=== PATIENT | female | born 1955 | race Caucasian/White ===

== ENCOUNTER 2023-07-30 03:34 | Inpatient (IN) | payer OTHER ==
[2023-07-30] MEDS ORDERED: niCARdipine 25 MG/10 ML SDV ONE (04:08)
[2023-07-30 04:51] LABS: %Basophils 1.2 % (0.0-1.0); %Eosinophils 1.8 % (0.0-10.0); %Lymphocytes 16.8 % (21.0-51.0); %Monocytes 7.7 % (0.0-10.0); Hemoglobin 12.5 g/dL (12.0-16.0); Mean Corpuscular HGB CONC 31.3 g/dL (32.0-36.0); Mean Corpuscular Hemoglobin 23.3 pg (27.0-31.0); Mean Corpuscular Volume 74.6 fL (78.0-98.0); Mean Platelet Volume 11.5 fL (7.4-10.4); Platelet Count 220 10x3/uL (130-400); RBC Distribution Width 17.6 % (11.5-14.5); Red Blood Cell (RBC) Count 5.36 mill/uL (4.20-5.40)
[2023-07-30 04:59] LABS: Globulin 3.1 g/dL (2.4-3.5)
[2023-07-30 05:03] LABS: ALT (SGPT) 8 U/L (8-55); AST (SGOT) 11 U/L (5-34); Albumin 3.4 g/dL (3.4-4.8); Alkaline Phosphatase 92 U/L (40-110); Anion Gap 15 mmol/L (10-20); BUN (Urea Nitrogen) 9 mg/dL (9.8-20.1); Bilirubin, Total 0.3 mg/dL (0.2-1.2); Calc. Creatinine Clearance 0 mL/min (70-130); Calcium 8.9 mg/dL (7.8-10.44); Carbon Dioxide 23 mmol/L (23-31); Chloride 105 mmol/L (98-107); Estimated GFR 96; Glucose 115 mg/dL (80-115); Potassium 3.4 mmol/L (3.5-5.1); Protein, Total 6.5 g/dL (5.8-8.1); Sodium 140 mmol/L (136-145)
[2023-07-30 05:09] LABS: PTT 28.1 sec (22.9-36.1); Prothrombin Time 13.5 sec (12.0-14.7)
[2023-07-30 05:10] LABS: Troponin I Less than 0.010 ng/mL (< 0.028)
[2023-07-30 05:38] LABS: Microcytosis SLIGHT = 6-15 cells HPF (0-5); Platelet Adequacy Comment Platelets Normal
[2023-07-30] MEDS ORDERED: Ondansetron PF 4 MG/2 ML Vial IVP PRN (06:08)
[2023-07-30] MEDS ORDERED: Communication Order-Pharmacy FS SCH (06:18)
[2023-07-30] MEDS ORDERED: Labetalol HCl 100 MG/20 ML VIAL SLOW IVP PRN (06:18)
[2023-07-30] MEDS: Ipratropium/Albuterol 3 ML NEB NEB SCH (08:54)
[2023-07-30] MEDS: Potassium Chloride 10 MEQ in Premix 1 BAG IVPB SCH (09:17)
[2023-07-30] MEDS ORDERED: Iopamidol 370 76% 100 ML VIAL ONE (09:48)
[2023-07-30] MEDS: hydrALAZINE 20 MG/ML VIAL SLOW IVP PRN (19:15)
[2023-07-30] MEDS: niCARdipine 25 MG in Sodium Chloride 0.9% 250 ML 250 ML IVPB PRN (20:01)
[2023-07-31 07:28] LABS: #Basophils 0.13 10x3/uL (0.0-0.2); %Basophils 0.9 % (0.0-1.0); %Eosinophils 0.4 % (0.0-10.0); %Lymphocytes 12.8 % (21.0-51.0); %Monocytes 6.9 % (0.0-10.0); %Neutrophils 78.6 % (42.0-75.0); Hematocrit 44.7 % (36.0-47.0); Hemoglobin 13.5 g/dL (12.0-16.0); Mean Corpuscular HGB CONC 30.2 g/dL (32.0-36.0); Mean Corpuscular Hemoglobin 22.5 pg (27.0-31.0); Mean Corpuscular Volume 74.4 fL (78.0-98.0); Platelet Count 194 10x3/uL (130-400); RBC Distribution Width 18.6 % (11.5-14.5); Red Blood Cell (RBC) Count 6.01 mill/uL (4.20-5.40)
[2023-07-31 07:29] LABS: Hemoglobin A1c 5.6 % (4.0-6.0)
[2023-07-31 07:56] LABS: Free T4 (Free Thyroxine) 1.01 ng/dL (0.70-1.48); Thyroid Stimulating Hormone 2.8592 uIU/mL (0.35-4.94)
[2023-07-31 08:11] LABS: Anion Gap 17 mmol/L (10-20); BUN (Urea Nitrogen) 5 mg/dL (9.8-20.1); Calc. Creatinine Clearance 131 mL/min (70-130); Calcium 9.3 mg/dL (7.8-10.44); Carbon Dioxide 22 mmol/L (23-31); Cardiac Risk 4.6 (Less than 4.5); Chloride 106 mmol/L (98-107); Cholesterol 194 mg/dl (< 200 Desired); Estimated GFR 101; Glucose 112 mg/dL (80-115); HDL Cholesterol 42 mg/dL (>60 Neg Risk); LDL Cholesterol, Calculated 127 mg/dL; Potassium 3.7 mmol/L (3.5-5.1); Sodium 141 mmol/L (136-145); Triglycerides 124 mg/dL (Less than 150)
[2023-07-31 08:56] LABS: Burr Cells SLIGHT = 2-5 cells HPF (0-1); Elliptocytes SLIGHT = 2-5 cells HPF (0-1); Platelet Adequacy Comment Platelets Normal; Polychromasia SLIGHT = 2-3 cells HPF (0-2)
[2023-07-31] MEDS: Amlodipine 10 MG TAB PO SCH (09:24)
[2023-07-31] MEDS: Aspirin 81 mg Enteric Coated Tablet PO SCH (11:00)
[2023-07-31] MEDS: Acetaminophen 500 MG TAB PO PRN (15:59)
[2023-07-31] MEDS: Losartan 25 MG TAB PO SCH (15:59)
[2023-07-31] MEDS: Enoxaparin 40 MG (0.4 mL) SYRINGE SC SCH (20:22)
[2023-07-31] MEDS: Atorvastatin Calcium 40 MG TAB PO SCH (20:22)
[2023-07-31] MEDS: Acetaminophen 500 MG TAB PO SCH (22:14)
[2023-07-31] MEDS: Melatonin 3 MG TAB PO SCH (22:14)
[2023-08-01 04:19] LABS: #Basophils 0.13 10x3/uL (0.0-0.2); %Basophils 1.3 % (0.0-1.0); %Eosinophils 1.7 % (0.0-10.0); %Lymphocytes 24.6 % (21.0-51.0); %Monocytes 9.9 % (0.0-10.0); %Neutrophils 62.3 % (42.0-75.0); Hematocrit 42.2 % (36.0-47.0); Hemoglobin 12.8 g/dL (12.0-16.0); Mean Corpuscular HGB CONC 30.3 g/dL (32.0-36.0); Mean Corpuscular Hemoglobin 22.1 pg (27.0-31.0); Mean Platelet Volume 11.6 fL (7.4-10.4); Platelet Count 233 10x3/uL (130-400); RBC Distribution Width 18.3 % (11.5-14.5); Red Blood Cell (RBC) Count 5.78 mill/uL (4.20-5.40)
[2023-08-01 05:36] LABS: Chloride 105 mmol/L (98-107); Potassium 3.3 mmol/L (3.5-5.1); Sodium 141 mmol/L (136-145)
[2023-08-01 05:37] LABS: Calcium 9.2 mg/dL (7.8-10.44); Glucose 95 mg/dL (80-115)
[2023-08-01 05:38] LABS: Anion Gap 16 mmol/L (10-20); Carbon Dioxide 23 mmol/L (23-31)
[2023-08-01 05:41] LABS: BUN (Urea Nitrogen) 6 mg/dL (9.8-20.1); Calc. Creatinine Clearance 122 mL/min (70-130); Estimated GFR 99
[2023-08-01] MEDS: Aspirin 81 mg Enteric Coated Tablet PO SCH (09:09)
[2023-08-01] MEDS: Losartan 25 MG TAB PO SCH (09:09)
[2023-08-01] MEDS: Methyl Salicylate/Menthol 85 GM TUBE TOP PRN (22:44)
[2023-08-02 05:19] LABS: #Basophils 0.12 10x3/uL (0.0-0.2); %Basophils 1.1 % (0.0-1.0); %Eosinophils 1.9 % (0.0-10.0); %Lymphocytes 24.4 % (21.0-51.0); %Monocytes 9.3 % (0.0-10.0); %Neutrophils 63.1 % (42.0-75.0); Hematocrit 41.6 % (36.0-47.0); Mean Corpuscular HGB CONC 31.3 g/dL (32.0-36.0); Mean Corpuscular Volume 73.5 fL (78.0-98.0); Mean Platelet Volume 11.6 fL (7.4-10.4); Platelet Count 242 10x3/uL (130-400); Red Blood Cell (RBC) Count 5.66 mill/uL (4.20-5.40)
[2023-08-02 05:55] LABS: Anion Gap 15 mmol/L (10-20); BUN (Urea Nitrogen) 9 mg/dL (9.8-20.1); Calc. Creatinine Clearance 121 mL/min (70-130); Calcium 9.2 mg/dL (7.8-10.44); Carbon Dioxide 24 mmol/L (23-31); Chloride 105 mmol/L (98-107); Estimated GFR 99; Glucose 93 mg/dL (80-115); Potassium 3.3 mmol/L (3.5-5.1); Sodium 141 mmol/L (136-145)
[2023-08-02] MEDS: Potassium Chloride 20 MEQ TAB PO SCH (09:39)
[2023-08-02] MEDS: Amlodipine 5 MG TAB PO SCH (09:43)
[2023-08-02] MEDS ORDERED: Acetaminophen 500 MG TAB PO SCH (15:00)
[2023-08-02] MEDS ORDERED: Methyl Salicylate/Menthol 85 GM TUBE TOP PRN (16:40)
[2023-08-03 05:19] LABS: #Basophils 0.13 10x3/uL (0.0-0.2); %Basophils 1.5 % (0.0-1.0); %Eosinophils 2.7 % (0.0-10.0); %Lymphocytes 29.2 % (21.0-51.0); %Monocytes 10.7 % (0.0-10.0); %Neutrophils 55.6 % (42.0-75.0); Hemoglobin 12.2 g/dL (12.0-16.0); Mean Corpuscular HGB CONC 30.5 g/dL (32.0-36.0); Mean Corpuscular Hemoglobin 23.2 pg (27.0-31.0); Mean Corpuscular Volume 76.2 fL (78.0-98.0); Mean Platelet Volume 11.7 fL (7.4-10.4); Platelet Count 229 10x3/uL (130-400); RBC Distribution Width 17.9 % (11.5-14.5); Red Blood Cell (RBC) Count 5.25 mill/uL (4.20-5.40)
[2023-08-03 05:41] LABS: Anion Gap 14 mmol/L (10-20); BUN (Urea Nitrogen) 10 mg/dL (9.8-20.1); Calc. Creatinine Clearance 123 mL/min (70-130); Calcium 9.1 mg/dL (7.8-10.44); Carbon Dioxide 24 mmol/L (23-31); Chloride 107 mmol/L (98-107); Estimated GFR 99; Glucose 97 mg/dL (80-115); Potassium 3.8 mmol/L (3.5-5.1); Sodium 141 mmol/L (136-145)
[2023-08-03] MEDS ORDERED: Amlodipine 10 MG TAB PO SCH ×2 (09:00)
[2023-08-04 05:26] LABS: #Basophils 0.12 10x3/uL (0.0-0.2); %Basophils 1.5 % (0.0-1.0); %Eosinophils 3.2 % (0.0-10.0); %Lymphocytes 30.5 % (21.0-51.0); %Monocytes 11.5 % (0.0-10.0); Hematocrit 40.6 % (36.0-47.0); Hemoglobin 12.4 g/dL (12.0-16.0); Mean Corpuscular HGB CONC 30.5 g/dL (32.0-36.0); Mean Corpuscular Hemoglobin 23.4 pg (27.0-31.0); Mean Corpuscular Volume 76.5 fL (78.0-98.0); Mean Platelet Volume 11.2 fL (7.4-10.4); Platelet Count 210 10x3/uL (130-400); RBC Distribution Width 17.6 % (11.5-14.5); Red Blood Cell (RBC) Count 5.31 mill/uL (4.20-5.40)
[2023-08-04 05:42] LABS: Anion Gap 14 mmol/L (10-20); BUN (Urea Nitrogen) 10 mg/dL (9.8-20.1); Calc. Creatinine Clearance 117 mL/min (70-130); Calcium 8.9 mg/dL (7.8-10.44); Carbon Dioxide 23 mmol/L (23-31); Chloride 107 mmol/L (98-107); Estimated GFR 98; Glucose 95 mg/dL (80-115); Potassium 3.6 mmol/L (3.5-5.1); Sodium 140 mmol/L (136-145)
[2023-08-05 07:45] VITALS: TEMP 98.2
[2023-08-05 16:06] VITALS: BP 119/70
== END 2023-08-05 17:17 | disposition home or self-care (01) | DRG 62 ==
LOC: ERS 03:34 → CCU 06:10 → 2SE 08-01 14:53
PROVIDERS: ADMIT Internal Medicine; ATTEND Hospitalist
DX: I63.9 Cerebral infarction, unspecified (principal); G81.94 Hemiplegia, unspecified affecting left nondominant side; J44.9 Chronic obstructive pulmonary disease, unspecified; F17.210 Nicotine dependence, cigarettes, uncomplicated; I10 Essential (primary) hypertension; D75.839 Thrombocytosis, unspecified; R13.12 Dysphagia, oropharyngeal phase; M19.90 Unspecified osteoarthritis, unspecified site; Z96.651 Presence of right artificial knee joint; R47.1 Dysarthria and anarthria; Z98.890 Other specified postprocedural states; Z88.8 Allergy status to other drugs, medicaments and biological substances; Z71.6 Tobacco abuse counseling
CPT/HCPCS: 36415; 36416; 70450; 70496; 70498; 70553; 74230; 80048; 80053; 80061; 83036; 84439; 84443; 84484; 85025; 85610; 85730; 93005; 93306; 94640; 96365; 96366; 96375; J0360; J1650; J3480; J7050; J7620; Q9967